=== PATIENT | female | born 1975 | race Caucasian/White ===

== ENCOUNTER 2017-09-21 19:36 | Emergency (ER) | payer MEDICAID ==
[2017-09-21 21:53] LABS: URINE BLOOD (Dip) POC 1+ (NEGATIVE); URINE GLUCOSE (Dip) POC Negative (NEGATIVE); URINE KETONES (Dip) POC Negative (NEGATIVE); URINE LEUKOCYTE EST (Dip) POC Trace (NEGATIVE); URINE NITRITE (Dip) POC Negative (NEGATIVE); URINE TOTAL PROTEIN POC Negative (NEGATIVE)
[2017-09-21 21:53] LABS: URINE PH (Dip) POC 6.5 (5.0-8.5)
[2017-09-21] MEDS: ONDANSETRON 4 MG INJ IV (22:26)
[2017-09-21] MEDS: SOD CHLORIDE 0.9% 1,000 ML IV (22:26)
[2017-09-21] MEDS: ACETAMINOPHEN 325 MG TAB PO (22:35)
[2017-09-21 22:37] LABS: ADD MAN DIFF? NO
[2017-09-21 22:40] LABS: BASOPHILS % 0.2 % (0.0-2.0); EOSINOPHILS # 0.1 10^3/ul (0.0-0.5); EOSINOPHILS % 0.9 % (0.0-7.0); HEMATOCRIT 32.7 % (37.0-47.0); HEMOGLOBIN 10.9 g/dl (12.0-16.0); LYMPHOCYTES # 3.5 10^3/ul (0.8-2.9); LYMPHOCYTES % 28.7 % (15.0-51.0); MEAN CORPUSCULAR HEMOGLOBIN 26.5 pg (29.0-33.0); MEAN CORPUSCULAR HGB CONC 33.3 g/dl (32.0-37.0); MEAN CORPUSCULAR VOLUME 79.4 fl (82.0-101.0); MEAN PLATELET VOLUME 10.7 fl (7.4-10.4); MONOCYTE # 0.9 10^3/ul (0.3-0.9); MONOCYTES % 6.9 % (0.0-11.0); NEUTROPHIL # 7.7 10^3/ul (1.6-7.5); NEUTROPHILS % 62.8 % (39.0-77.0); PLATELET COUNT 269 10^3/UL (140-415); RED BLOOD COUNT 4.12 10^6/ul (4.20-5.40); RED CELL DISTRIBUTION WIDTH 14.8 % (11.5-14.5)
[2017-09-21 22:40] LABS: WHITE BLOOD COUNT 12.3 10^3/ul (4.8-10.8)
[2017-09-21 22:47] LABS: ALANINE AMINOTRANSFERASE 19 IU/L (13-69); ALBUMIN 4.1 g/dl (3.3-4.9); ALBUMIN/GLOBULIN RATIO 1.24; ALKALINE PHOSPHATASE 82 IU/L (42-121); ANION GAP 15 (8-16); ASPARTATE AMINO TRANSFERASE 23 IU/L (15-46); BLOOD UREA NITROGEN 12 mg/dl (7-20); CALCIUM 9.3 mg/dl (8.4-10.2); CARBON DIOXIDE 21 mmol/L (21-31); CHLORIDE 107 mmol/L (97-110); CREATININE 0.53 mg/dl (0.44-1.00); GLUCOSE 86 mg/dl (70-220); LIPASE 123 U/L (23-300); POTASSIUM 3.7 mmol/L (3.5-5.1); SODIUM 139 mmol/L (135-144); TOTAL PROTEIN 7.4 g/dl (6.1-8.1)
== END 2017-09-22 00:56 | disposition home or self-care (01) ==
LOC: E/R 09-22 00:56
DX: O26.892 Other specified pregnancy related conditions, second trimester (principal); R10.31 Right lower quadrant pain; R10.32 Left lower quadrant pain; O99.012 Anemia complicating pregnancy, second trimester; Z3A.15 15 weeks gestation of pregnancy
CPT/HCPCS: 36415; 76705; 76805; 80053; 81003; 83690; 85025; 96374; 99285-25

== ENCOUNTER 2018-01-16 19:12 | Outpatient (CLI) | payer MEDICAID ==
[2018-01-16 20:39] LABS: ADD UMIC YES; UR ASCORBIC ACID 40 mg/dL (NEGATIVE); UR BACTERIA FEW /HPF (NONE SEEN); UR BILIRUBIN (Dip) NEGATIVE (NEGATIVE); UR BLOOD (Dip) 1+ mg/dL (NEGATIVE); UR CLARITY CLEAR (CLEAR); UR COLOR YELLOW (YELLOW); UR GLUCOSE (Dip) NEGATIVE (NEGATIVE); UR KETONES (Dip) NEGATIVE (NEGATIVE); UR LEUKOCYTE ESTERASE (Dip) NEGATIVE Leu/ul (NEGATIVE); UR MUCUS FEW /HPF (NONE SEEN); UR NITRITE (Dip) NEGATIVE (NEGATIVE); UR RBC 5 /HPF (0-5); UR SPECIFIC GRAVITY (Dip) 1.024 (1.003-1.030); UR SQUAMOUS EPITHELIAL CELL FEW /HPF (FEW); UR TOTAL PROTEIN (Dip) NEGATIVE (NEGATIVE); UR UROBILINOGEN (Dip) NEGATIVE (NEGATIVE); UR WBC 2 /HPF (0-5)
[2018-01-16 20:44] LABS: RUPTURE FETAL MEMBRANES NEGATIVE (NEGATIVE)
== END 2018-01-16 22:00 | disposition home or self-care (01) ==
LOC: OBT 19:12 → L-D 19:13 → OBT 22:00
DX: O41.93X0 Disorder of amniotic fluid and membranes, unspecified, third trimester, not applicable or unspecified (principal); O09.523 Supervision of elderly multigravida, third trimester; Z3A.31 31 weeks gestation of pregnancy
CPT/HCPCS: 76818; 81001; 82731; 84112; 87086

== ENCOUNTER 2018-02-17 07:37 | Outpatient (CLI) | payer MEDICAID ==
[2018-02-17] MEDS: LACTATED RINGER'S 1,000 ML IV (08:20)
[2018-02-17 08:21] LABS: ADD UMIC YES; UR ASCORBIC ACID NEGATIVE (NEGATIVE); UR BACTERIA FEW /HPF (NONE SEEN); UR BILIRUBIN (Dip) NEGATIVE (NEGATIVE); UR BLOOD (Dip) 1+ mg/dL (NEGATIVE); UR CLARITY CLEAR (CLEAR); UR COLOR STRAW (YELLOW); UR GLUCOSE (Dip) NEGATIVE (NEGATIVE); UR KETONES (Dip) NEGATIVE (NEGATIVE); UR LEUKOCYTE ESTERASE (Dip) NEGATIVE Leu/ul (NEGATIVE); UR NITRITE (Dip) NEGATIVE (NEGATIVE); UR RBC 1 /HPF (0-5); UR SPECIFIC GRAVITY (Dip) 1.003 (1.003-1.030); UR SQUAMOUS EPITHELIAL CELL FEW /HPF (FEW); UR TOTAL PROTEIN (Dip) NEGATIVE (NEGATIVE); UR UROBILINOGEN (Dip) NEGATIVE (NEGATIVE); UR WBC 0 /HPF (0-5)
[2018-02-17 08:42] LABS: ADD MAN DIFF? NO
[2018-02-17 08:44] LABS: WHITE BLOOD COUNT 8.8 10^3/ul (4.8-10.8)
[2018-02-17 08:44] LABS: BASOPHILS % 0.1 % (0.0-2.0); EOSINOPHILS % 0.5 % (0.0-7.0); HEMATOCRIT 35.2 % (37.0-47.0); HEMOGLOBIN 11.4 g/dl (12.0-16.0); LYMPHOCYTES # 1.9 10^3/ul (0.8-2.9); LYMPHOCYTES % 22.1 % (15.0-51.0); MEAN CORPUSCULAR HEMOGLOBIN 26.5 pg (29.0-33.0); MEAN CORPUSCULAR HGB CONC 32.4 g/dl (32.0-37.0); MEAN CORPUSCULAR VOLUME 81.7 fl (82.0-101.0); MEAN PLATELET VOLUME 12.2 fl (7.4-10.4); MONOCYTE # 0.7 10^3/ul (0.3-0.9); MONOCYTES % 8.1 % (0.0-11.0); NEUTROPHILS % 68.3 % (39.0-77.0); PLATELET COUNT 199 10^3/UL (140-415); RED BLOOD COUNT 4.31 10^6/ul (4.20-5.40); RED CELL DISTRIBUTION WIDTH 14.4 % (11.5-14.5)
[2018-02-17] MEDS ORDERED: TERBUTALINE 1 MG/ML INJ SC (09:00)
[2018-02-17 09:01] LABS: ALANINE AMINOTRANSFERASE 16 IU/L (13-69); ALBUMIN 3.6 g/dl (3.3-4.9); ALBUMIN/GLOBULIN RATIO 1.05; ALKALINE PHOSPHATASE 170 IU/L (42-121); ANION GAP 13 (8-16); ASPARTATE AMINO TRANSFERASE 21 IU/L (15-46); BILIRUBIN,INDIRECT 0.1 mg/dl (0-1.1); BILIRUBIN,TOTAL 0.1 mg/dl (0.2-1.3); BLOOD UREA NITROGEN 8 mg/dl (7-20); CARBON DIOXIDE 20 mmol/L (21-31); CHLORIDE 108 mmol/L (97-110); CREATININE 0.55 mg/dl (0.44-1.00); GLUCOSE 93 mg/dl (70-220); POTASSIUM 3.8 mmol/L (3.5-5.1); SODIUM 137 mmol/L (135-144)
== END 2018-02-17 11:20 | disposition home or self-care (01) ==
LOC: OBT 07:37 → L-D 07:38 → OBT 11:20
DX: O36.8130 Decreased fetal movements, third trimester, not applicable or unspecified (principal); O09.523 Supervision of elderly multigravida, third trimester; Z3A.36 36 weeks gestation of pregnancy
CPT/HCPCS: 36415; 76818; 80053; 81001; 85025; 87086; 96360; 96361

== ENCOUNTER 2018-02-24 02:12 | Inpatient (IN) | payer MEDICAID ==
[2018-02-24] MEDS ORDERED: LACTATED RINGER'S 1,000 ML IV (03:00)
[2018-02-24] MEDS: TERBUTALINE 1 MG/ML INJ SC (03:00)
[2018-02-24] MEDS: LACTATED RINGER'S 1,000 ML IV ×4 (03:01→22:43)
[2018-02-24 03:20] LABS: ADD MAN DIFF? NO
[2018-02-24] MEDS ORDERED: CARBOPROST 250 MCG INJ IM ×2 (03:30→09:30)
[2018-02-24] MEDS ORDERED: METHYLERGONOVINE 0.2 MG INJ IM ×2 (03:30→09:30)
[2018-02-24] MEDS ORDERED: MISOPROSTOL 200 MCG TAB PR ×2 (03:30→09:30)
[2018-02-24] MEDS ORDERED: OXYTOCIN 30 UNITS/LR 500 ML IV ×2 (03:30→09:30)
[2018-02-24 03:31] LABS: BASOPHILS % 0.2 % (0.0-2.0); EOSINOPHILS # 0.1 10^3/ul (0.0-0.5); EOSINOPHILS % 0.8 % (0.0-7.0); HEMATOCRIT 35.9 % (37.0-47.0); HEMOGLOBIN 11.7 g/dl (12.0-16.0); MEAN CORPUSCULAR HEMOGLOBIN 26.5 pg (29.0-33.0); MEAN CORPUSCULAR HGB CONC 32.6 g/dl (32.0-37.0); MEAN CORPUSCULAR VOLUME 81.2 fl (82.0-101.0); MEAN PLATELET VOLUME 12.1 fl (7.4-10.4); MONOCYTE # 0.8 10^3/ul (0.3-0.9); MONOCYTES % 8.1 % (0.0-11.0); NEUTROPHILS % 60.2 % (39.0-77.0); PLATELET COUNT 205 10^3/UL (140-415); RED BLOOD COUNT 4.42 10^6/ul (4.20-5.40); RED CELL DISTRIBUTION WIDTH 14.3 % (11.5-14.5)
[2018-02-24 03:31] LABS: WHITE BLOOD COUNT 9.9 10^3/ul (4.8-10.8)
[2018-02-24 03:41] LABS: INR 0.93; PROTIME 12.5 Sec (11.9-14.9)
[2018-02-24 03:42] LABS: PARTIAL THROMBOPLASTIN TIME 27.5 Sec (25.0-35.0)
[2018-02-24 04:24] LABS: HEPATITIS B SURFACE ANTIGEN NEGATIVE (NEGATIVE)
[2018-02-24] MEDS ORDERED: BUPIVACAINE 0.75%/DEXT (SPINAL) 2 ML INJ (05:25)
[2018-02-24] MEDS ORDERED: FENTAnyl 50 MCG/ML VIAL (05:25)
[2018-02-24] MEDS ORDERED: morphine SULFATE/PF (10 MG/10 ML) INJ (05:26)
[2018-02-24] MEDS ORDERED: PHENYLephrine (100 MCG/ML) 5ML SYG (05:35)
[2018-02-24] MEDS ORDERED: DEXAMETHASONE 4 MG/ML 1 ML INJ (05:36)
[2018-02-24] MEDS ORDERED: ONDANSETRON 4 MG INJ (05:37)
[2018-02-24] MEDS ORDERED: HYDROmorphONE 0.5 MG/0.5 ML SYG IV (06:00)
[2018-02-24] MEDS ORDERED: ZOLPIDEM 5 MG TAB PO (06:00)
[2018-02-24] MEDS ORDERED: ONDANSETRON 4 MG INJ IV (06:00)
[2018-02-24] MEDS ORDERED: NALOXONE (0.4 MG/ML) INJ IV (06:00)
[2018-02-24] MEDS: CEFAZOLIN 2 GM/50 ML (PMX) 50 ML IV (06:21)
[2018-02-24] MEDS: KETOROLAC 30 MG INJ IV ×2 (07:31→19:54)
[2018-02-24] MEDS: OXYTOCIN 30 UNITS/LR 500 ML IV (07:41)
[2018-02-24] MEDS: AZITHROMYCIN 500MG/NS (PMX) 250 ML IVPB (07:47)
[2018-02-24] MEDS ORDERED: NA PHOSPHATE/BIPHOS 133 ML ENEMA PR (09:30)
[2018-02-24] MEDS ORDERED: CEFAZOLIN 2 GM/50 ML (PMX) 50 ML IV (09:30)
[2018-02-24] MEDS ORDERED: LANOLIN 7 GM TUBE TOP (09:30)
[2018-02-24] MEDS: DIPHENHYDRAMINE 50 MG INJ IV (09:37)
[2018-02-24] MEDS: HYDROmorphONE 0.5 MG/0.5 ML SYG IV ×2 (11:35→17:31)
[2018-02-24] MEDS: CLINDAMYCIN 300 MG CAP PO ×3 (12:31→23:41)
[2018-02-24] MEDS: CEFAZOLIN 2 GM/50 ML (PMX) 50 ML IVPB ×2 (13:53→21:39)
[2018-02-24 16:29] LABS: RAPID PLASMA REAGIN NONREACTIVE (NR)
[2018-02-24] MEDS: SENNA/DOCUSATE NA (8.6MG/50MG) TAB PO (21:38)
[2018-02-25] MEDS: KETOROLAC 30 MG INJ IV (04:27)
[2018-02-25] MEDS: CEFAZOLIN 2 GM/50 ML (PMX) 50 ML IVPB (05:44)
[2018-02-25] MEDS: IBUPROFEN 800 MG TAB PO ×3 (06:01→22:14)
[2018-02-25] MEDS: CLINDAMYCIN 300 MG CAP PO ×4 (06:01→23:52)
[2018-02-25 07:32] LABS: ADD MAN DIFF? NO
[2018-02-25 07:36] LABS: WHITE BLOOD COUNT 12.7 10^3/ul (4.8-10.8)
[2018-02-25 07:36] LABS: BASOPHILS % 0.2 % (0.0-2.0); EOSINOPHILS # 0.1 10^3/ul (0.0-0.5); EOSINOPHILS % 0.4 % (0.0-7.0); HEMATOCRIT 27.8 % (37.0-47.0); HEMOGLOBIN 8.8 g/dl (12.0-16.0); LYMPHOCYTES # 3.5 10^3/ul (0.8-2.9); LYMPHOCYTES % 27.5 % (15.0-51.0); MEAN CORPUSCULAR HEMOGLOBIN 25.9 pg (29.0-33.0); MEAN CORPUSCULAR HGB CONC 31.7 g/dl (32.0-37.0); MEAN CORPUSCULAR VOLUME 81.8 fl (82.0-101.0); MEAN PLATELET VOLUME 12.1 fl (7.4-10.4); MONOCYTE # 1.1 10^3/ul (0.3-0.9); MONOCYTES % 8.8 % (0.0-11.0); NEUTROPHIL # 7.9 10^3/ul (1.6-7.5); NEUTROPHILS % 62.3 % (39.0-77.0); PLATELET COUNT 177 10^3/UL (140-415); RED CELL DISTRIBUTION WIDTH 14.7 % (11.5-14.5)
[2018-02-25] MEDS: SENNA/DOCUSATE NA (8.6MG/50MG) TAB PO ×2 (08:22→21:02)
[2018-02-25] MEDS: OXYCODONE/ACETAMINOPHEN (5/325) TAB PO (08:22)
[2018-02-25] MEDS: BISACODYL 10 MG SUPP PR (10:00)
[2018-02-25] MEDS: HYDROCODONE/APAP (5/325) TAB PO ×2 (16:31→21:02)
[2018-02-26] MEDS: HYDROCODONE/APAP (5/325) TAB PO (01:58)
[2018-02-26] MEDS: IBUPROFEN 800 MG TAB PO ×3 (05:48→21:37)
[2018-02-26] MEDS: CLINDAMYCIN 300 MG CAP PO ×3 (05:48→17:54)
[2018-02-26] MEDS: SENNA/DOCUSATE NA (8.6MG/50MG) TAB PO ×2 (10:26→21:07)
[2018-02-26] MEDS: OXYCODONE/ACETAMINOPHEN (5/325) TAB PO (11:02)
[2018-02-27] MEDS: CLINDAMYCIN 300 MG CAP PO ×3 (00:10→11:44)
[2018-02-27] MEDS: OXYCODONE/ACETAMINOPHEN (5/325) TAB PO (01:55)
[2018-02-27] MEDS: IBUPROFEN 800 MG TAB PO ×2 (05:31→15:05)
[2018-02-27] MEDS: MEASLES,MUMPS,RUBELLA VACCINE INJ SC* (09:00)
[2018-02-27] MEDS: DIPHTH/TET/ACEL PERTUSS (ADULT) 0.5 ML VIAL IM* (09:00)
[2018-02-27] MEDS: SENNA/DOCUSATE NA (8.6MG/50MG) TAB PO (09:00)
[2018-02-27] MEDS: HYDROCODONE/APAP (5/325) TAB PO (11:44)
== END 2018-02-27 16:30 | disposition home or self-care (01) | DRG 766 ==
LOC: OBT 02:12 → L-D 02:12 → OBT 03:35 → L-D 03:36 → PP1 09:03
PROVIDERS: Obstetrics & Gynecology
PROC: 10D00Z1 Extraction of Products of Conception, Low, Open Approach (ICD-10-PCS; principal; 2018-02-24)
DX: O34.219 Maternal care for unspecified type scar from previous cesarean delivery (principal); Z3A.37 37 weeks gestation of pregnancy
CPT/HCPCS: 36415; 71045; 85025; 85610; 85730; 86592; 86850; 86900; 86901; 87340; 96372; 99464